=== PATIENT | female | born 1955 | race Two or more races ===

== ENCOUNTER 2022-01-17 21:43 | Emergency (ER) | payer OTHER ==
[~2022-01-17] VITALS: Ht 154.9 cm; Wt 70.3 kg
--- NOTE | 2022-01-17 22:02 | NUR ---
[id number] FROM HOME C/O HIGH BP THIS EVENING. PT A/OX3; SCOTTISH SPEAKING. TOLERATING R/A WELL. RR EVEN AND NONLABORED. CONNECTED PT TO POX AND MONITOR. SAFETY MEASURES IN PLACE.
--- NOTE | 2022-01-17 22:15 | NUR ---
DR. DAGO BURTON AT PT'S BEDSIDE
[2022-01-17] MEDS ORDERED: diphenhydrAMINE HCL 50 MG/ML VIAL IV ONE (22:30)
[2022-01-17] MEDS ORDERED: PROCHLORPERAZINE EDISYLATE 10 MG/2 ML VIAL IVP ONE (22:30)
[2022-01-17] MEDS ORDERED: IV NS 0.9% 1,000 ML BAG IV ONE (22:30)
[2022-01-17] MEDS ORDERED: PROCHLORPERAZINE EDISYLATE 10 MG/2 ML VIAL ONE (22:33)
[2022-01-17] MEDS ORDERED: diphenhydrAMINE HCL 50 MG/ML VIAL ONE (22:33)
--- NOTE | 2022-01-17 22:54 | NUR ---
RAC #18G S/L BLOOD COLLECTED AND SENT TO LAB
[2022-01-17 23:02] LABS: BASOPHILS % (AUTO) 0.5 % (0.0-2.0); HEMATOCRIT 43 % (33-45); HEMOGLOBIN 14.6 g/dL (11.5-14.8); LYMPHOCYTES # (AUTO) 2.1 K/uL (0.8-4.8); LYMPHOCYTES % (AUTO) 37.2 % (20.0-44.0); MEAN CORPUSCULAR HGB CONC 35 g/dl (31.0-36.0); MEAN CORPUSCULAR VOLUME 97 fL (82-100); MONOCYTES # (AUTO) 0.3 K/uL (0.1-1.30); MONOCYTES % (AUTO) 5.6 % (2.0-12.0); NEUTROPHILS % (AUTO) 53.7 % (43.0-81.0); PLATELET COUNT (AUTO) 197 K/uL (150-450); WHITE BLOOD COUNT (AUTO) 5.6 K/uL (4.3-11.0)
--- NOTE | 2022-01-17 23:10 | NUR ---
PT TAKEN TO CT VIA [facility]
--- NOTE | 2022-01-17 23:15 | NUR ---
PT RETURNED TO ER BED [address]
[2022-01-17 23:22] LABS: CALCIUM, SERUM 8.6 mg/dL (8.5-10.1); CARBON DIOXIDE 29 mmol/L (21-32); CHLORIDE 106 mmol/L (98-107); CREATININE 0.9 mg/dL (0.6-1.3); GLUCOSE 111 mg/dL (74-106); POTASSIUM 3.5 mmol/L (3.5-5.1); SODIUM SERUM 141 mmol/L (136-145); UREA NITROGEN, BLOOD 18 mg/dL (7-18)
--- NOTE | 2022-01-18 02:00 | NUR ---
Patient discharged to home in stable condition. Written and verbal after care instructions given. Patient verbalizes understanding of instruction. IV removed. Catheter intact and site benign. Pressure and 4x4 applied to site. No bleeding noted. PT ambulatory with a steady gait
[2022-01-18 02:13] VITALS: BP 139/77
== END 2022-01-18 02:13 | disposition home or self-care (01) ==
LOC: ER 21:45
DX: R51.9 Headache, unspecified (principal); R07.89 Other chest pain
CPT/HCPCS: 99285; 96374; 70450; 71045; 96361; 96375; 93005; 85025; 80048; 36415 ×2; 84484 ×2; J0780; J1200; J7030